=== PATIENT | female | born 1945 | race Caucasian/White ===

== ENCOUNTER 2018-09-30 07:14 | Outpatient (CLI) | payer OTHER, MEDICARE | END 2018-09-30 23:59 | disposition home or self-care (01) | LOC: CFH 07:14 | PROVIDERS: ATTEND Nurse Practitioner Family | DX: R92.2 Inconclusive mammogram (principal); N95.8 Other specified menopausal and perimenopausal disorders | CPT/HCPCS: 76641 ==